=== PATIENT | female | born 1945 | race African-American/Black ===

== ENCOUNTER 2017-05-22 22:31 | Emergency (ER) | payer MEDICARE ==
[~2017-05-22] VITALS: Ht 157.5 cm; Wt 113.0 kg
[~2017-05-22 22:31] MED LIST: FURO20TA4 PO; LOSA50TA20 PO; MECL-109 PO
[2017-05-22] MEDS ORDERED: MORPHINE SULFATE 4 MG/ML CPJ (NOT FOR IM USE) IV STA (23:16)
[2017-05-22] MEDS ORDERED: ONDANSETRON HCL 4MG/2ML VIAL IV STA (23:16)
[2017-05-23] MEDS ORDERED: MORPHINE SULFATE 4 MG/ML CPJ (NOT FOR IM USE) IV ONE (02:15)
[2017-05-23 03:39] VITALS: BP 139/76
== END 2017-05-23 03:38 | disposition home or self-care (01) ==
LOC: ER 22:53
DX: S52.511A Displaced fracture of right radial styloid process, initial encounter for closed fracture (principal); S52.611A Displaced fracture of right ulna styloid process, initial encounter for closed fracture; I11.0 Hypertensive heart disease with heart failure; I50.9 Heart failure, unspecified; Z90.49 Acquired absence of other specified parts of digestive tract; W18.39XA Other fall on same level, initial encounter; Y93.89 Activity, other specified; Y92.89 Other specified places as the place of occurrence of the external cause; Y99.8 Other external cause status
CPT/HCPCS: 29125; 73110; 73130; 96374; 96375; 96376; 99284; J2270; J2405

== ENCOUNTER 2025-03-02 00:41 | Emergency (ER) | payer MEDICARE, MEDICAID ==
[~2025-03-02] VITALS: Ht 167.6 cm; Wt 99.0 kg
[2025-03-02 00:20] VITALS: PULSE 50; RESP 18; O2SAT 96
[~2025-03-02 00:41] MED LIST changes: -LOSA50TA20 PO; +LOSA50TA41 PO; -MECL-109 PO; +MECL-299 PO
[2025-03-02] MEDS ORDERED: PROPOFOL 10MG/ML 100ML 100 ML IV ONE (01:15)
[2025-03-02] MEDS ORDERED: EPINEPHRINE 5 MG in SODIUM CHLORIDE 0.9% 245 ML IV PRN (01:15)
== END 2025-03-02 01:33 ==
LOC: ER 00:41
DX: I46.9 Cardiac arrest, cause unspecified (principal); Z79.899 Other long term (current) drug therapy
CPT/HCPCS: 99285; 92950; 82962; 31720; 93005; 94070; J2704; 94002